=== PATIENT | male | born 2000 | race Caucasian/White ===

== ENCOUNTER 2021-01-25 14:33 | Emergency (ER) | payer MEDICAID, SELFPAY ==
[2021-01-25 14:56] VITALS: BP 121/76; PULSE 70; RESP 16; TEMP 37.1; O2SAT 96
--- NOTE | 2021-01-25 15:09 | ED.GENADUL_ITS ---
Discharge Plan Disposition Patient Disposition: HOME Condition: Stable Discharge Details Clinical Impression: Anal fissure Primary Care Provider: Unknown,Unknown ED Provider: Gilles Sheldon Home Meds and New Rx's Prescriptions: New lidocaine 3 % cream 1 applic topical TID PRNQty: 28.35 RF: 0 Discharge Instructions Instructions: Anal Fissure (ED), High Fiber Diet (ED) Additional Instructions: you can use over the counter preperation H try sitz baths where you sit in a warm bath for 15 minutes 3-4 times a day and after each bowel movements if you feel more ill or have severe worsening pain or uncontrolled bleeding return to the emergency department Medical Decision Making 20 yo male with no chronic medical problems comes in with cc of intermittent bleeding with bowel movements and pain with bowel movements. He states today he wiped and there was blood on the toilet paper so came here. Denies abdominal pain, fevers, chills, chest pain, lightheadedness. He appears well systemically speaking in full sentences. He has melissa bdominal tenderness. He has no blood on rectal exam and has a 1cm anal fissure at the 12 oclock position which is likely the source of his bleeding and pain but will obtain cbc to evaluate for anemia. Given lack of abdominal tendernress or bleeding on my exam do not feel ct indicated. labs unremarkable and he remains stable. Will have him start sitz baths, increase fiber and place on follow up list to get established with a pcp, return precautions given Differential Diagnosis Differential Diagnosis: anal fissure, hemorrhoids Lab Data Lab results reviewed: Yes I reviewed the patient's lab results. HPI General Mode of arrival: ambulatory . Date/Time Provider Initiated Documentation: 01/25/21 14:44 . Limitations to Documentation: no limitations . Information obtained by: patient . History of Present Illness 20 year old M presents to the emergency department with the chief complaint of rectal bleeding, described as moderate, Patient reports no radiation. Patient started experiencing this month(s) (2) and it has been intermittent. No relieving factors improve symptom(s), No exacerbating factors reported . Patient did receive the following treatments prior to arrival, none Related Data Home Medications Medication Instructions Recorded Confirmed lidocaine 1 applic TOPICAL TID PRN #28.35 g 01/25/21 Previous Rx's Medication Instructions Recorded lidocaine 1 applic TOPICAL TID PRN #28.35 g 01/25/21 General Stated Complaint: Vascular ALEM: 4 Review of Systems All systems reviewed & are unremarkable except as noted in HPI and below Constitutional Constitutional: Denies chills, Denies fever(s) and Denies weakness Cardiovascular Cardiovascular: Denies chest pain and Denies dyspnea Respiratory Respiratory: Denies cough and Denies dyspnea Gastrointestinal Gastrointestinal: Denies abdominal pain, Denies nausea and Denies vomiting Musculoskeletal Musculoskeletal: Denies joint swelling Neurologic Neurologic: Denies weakness Psychiatric Psychiatric: Denies depression PFSH Social History Smoking/Tobacco Use Status: Former Tobacco Use Smoking risk assessment performed?: Yes Drug use: Occasionally Substance use type: marijuana Do you feel safe at home: Yes Do you feel safe in your relationship?: Yes Exam Const General: no acute distress Orientation: alert HENMT Head: normal to inspection Ears: external ears normal General nose exam: external nose normal Mouth: moist mucous membranes Eyes General: appearance normal, both eyes and all related structures Neck Neck: normal visual inspection Resp Effort & Inspection: normal respiratory effort and able to speak in complete sentences Cardio Rate: regular rate GI Palpation: soft and nontender Skin General skin exam: no rashes or lesions noted Neuro General: patient alert and patient oriented x3 Extrem General: normal to inspection Psych Mental Status: mental status grossly normal Course Vital Signs Vital signs: Vital Signs Respiratory Rate 16 01/25/21 14:56 Blood Pressure 121/76 01/25/21 14:56 Pulse Oximetry 96 01/25/21 14:56 Respiratory Rate 16 01/25/21 14:56 Respiratory Effort 01/25/21 15:01 Respiratory Depth Normal 01/25/21 15:01 Respiratory Pattern Normal 01/25/21 15:01 Blood Pressure 121/76 01/25/21 14:56 Blood Pressure Position Sitting 01/25/21 14:56 Pulse Oximetry 96 01/25/21 14:56 Oxygen Delivery Method Room Air 01/25/21 14:56 Oxygen Flow Rate 0 01/25/21 14:56 Pain Level 6 01/25/21 14:56
[2021-01-25 15:25] LABS: Abs Immature Grans 0.07 10^3/uL (0.0-0.06); Absolute Basophil Count 0.07 10^3/uL (0.0-0.2); Absolute Eosinophil Count 0.28 10^3/uL (0.0-0.7); Absolute Lymphocyte Count 2.57 10^3/uL (1.2-3.4); Absolute Neutrophil Count 4.78 10^3/uL (1.2-6.7); Basophils % 0.8; Eosinophils % 3.2; HCT 45.9 % (40.0-50.0); HGB 15.1 g/dL (13.5-17.5); Immature Grans % 0.8; Lymphocytes % 29.6; MCH 28.4 pg (27.0-33.0); MCHC 32.9 % (32.0-36.0); MCV 86.3 fL (80-95); MPV 9.1 fL (8.0-11.0); Monocytes % 10.4; Neutrophils % 55.2; Nucleated RBC 0 %; Platelet Count 334 10^3/uL (130-400); RBC 5.32 10^6/uL (4.36-5.78); RDW 12.5 % (11.8-14.1); RDW-SD 39.4 fL; WBC 8.67 10^3/uL (4.4-10.8)
[2021-01-25 15:39] LABS: ALT 12 U/L (16-63); AST 13 U/L (15-37); Albumin 4.4 g/dL (3.4-5.0); Alkaline Phosphatase 75 U/L (46-116); Anion Gap 7.9 mmol/L (3-11); BUN 11 mg/dL (7-18); Bilirubin, Total 0.5 mg/dL (0.2-1.0); CO2 30.1 mmol/L (21.0-32.0); CREATININE 0.9 mg/dL (0.70-1.30); Calcium 9.9 mg/dL (8.5-10.1); Chloride 102 mmol/L (98-107); Glucose 98 mg/dL (74-106); Potassium 3.4 mmol/L (3.5-5.1); Sodium 140 mmol/L (136-145); Total Protein 8.4 g/dL (6.4-8.2)
--- NOTE | 2021-01-25 16:00 | NUR.NOTE ---
referral to [facility] for pcp
[2021-01-25 16:18] VITALS: PULSE 70; RESP 14; O2SAT 98
== END 2021-01-25 16:46 | disposition home or self-care (01) ==
PROVIDERS: Emergency Provider Emergency Medicine
DX: K60.0 Acute anal fissure (principal)
CPT/HCPCS: 36415; 80053; 99283; 85025

== ENCOUNTER 2021-02-27 15:10 | Outpatient (REF) | payer MEDICAID, SELFPAY ==
[2021-03-02 18:39] LABS: Chlamydia Result Negative (Negative); GC Result Negative (Negative)
== END 2021-02-27 15:11 | disposition home or self-care (01) ==
LOC: LBN 15:10
PROVIDERS: Visit Provider Family Medicine
DX: Z11.3 Encounter for screening for infections with a predominantly sexual mode of transmission (principal)
CPT/HCPCS: 87491; 87591

== ENCOUNTER 2021-03-06 00:59 | Outpatient (CLI) | payer MEDICAID, SELFPAY ==
--- NOTE | 2021-03-06 09:30 | DI.US_ITS ---
Exam(s) US SCROTUM EXAM: US SCROTUM CLINICAL HISTORY: RT TESTICULAR PAIN, N50.811. TECHNIQUE: Scrotal ultrasound performed using grayscale, color-flow and spectral Doppler analysis. COMPARISON: No exams were available for comparison FINDINGS: Right testicle: 4.4 x 2.6 x 3.0 cm Echogenicity: Normal. Contour: Smooth. Mass: None seen. Microlithiasis: There is a single tiny parenchymal calcification. Hydrocele: There is a small hydrocele measuring 2.3 x 1.4 x 1.8 cm. Variocele: None. Hernia: No peristalsing bowel loop identified. Epididymis: There is a 8 mm epididymal head cyst. Left testicle: 4.1 x 2.7 x 3.1 cm Echogenicity: Normal. Contour: Smooth. Mass: None seen. Microlithiasis: There is a single tiny parenchymal calcification. Hydrocele: None. Variocele: None. Hernia: No peristalsing bowel loop identified. Epididymis: There is a 5 mm epididymal cyst. DOPPLER: Color: Symmetric and uniform, no hyperemia. Duplex: Bilateral testicular arterial waveforms visualized. IMPRESSION: 1. No evidence of a testicular mass or torsion. 2. Bilateral small epididymal cysts. 3. Small right hydrocele. DATA REPOSITORY:
== END 2021-03-06 01:19 ==
PROVIDERS: Visit Provider Physician Assistant Medical
DX: N50.811 Right testicular pain (principal); N43.2 Other hydrocele; N50.3 Cyst of epididymis
CPT/HCPCS: 76870

== ENCOUNTER 2021-05-07 17:33 | Outpatient (REF) | payer MEDICAID, SELFPAY ==
[2021-05-07 21:38] LABS: ALT 16 U/L (16-63); AST 20 U/L (15-37); Albumin 4.5 g/dL (3.4-5.0); Alkaline Phosphatase 67 U/L (46-116); Anion Gap 6.5 mmol/L (3-11); BUN 7 mg/dL (7-18); Bilirubin, Total 0.6 mg/dL (0.2-1.0); CO2 29.5 mmol/L (21.0-32.0); CREATININE 0.8 mg/dL (0.70-1.30); Calcium 9.3 mg/dL (8.5-10.1); Chloride 101 mmol/L (98-107); Glucose 86 mg/dL (74-106); Potassium 4.1 mmol/L (3.5-5.1); Sodium 137 mmol/L (136-145); Total Protein 7.6 g/dL (6.4-8.2)
== END 2021-05-07 17:34 | disposition home or self-care (01) ==
LOC: LBN 17:33
PROVIDERS: Visit Provider Physician Assistant Medical
DX: B35.0 Tinea barbae and tinea capitis (principal)
CPT/HCPCS: 80053

== ENCOUNTER 2021-08-25 08:47 | Outpatient (REF) | payer MEDICAID, SELFPAY ==
[2021-08-25 14:39] LABS: Abs Immature Grans 0.04 10^3/uL (0.0-0.06); Absolute Basophil Count 0.04 10^3/uL (0.0-0.2); Absolute Eosinophil Count 0.37 10^3/uL (0.0-0.7); Absolute Lymphocyte Count 1.85 10^3/uL (1.2-3.4); Absolute Monocyte Count 0.57 10^3/uL (0.1-0.8); Absolute Neutrophil Count 2.94 10^3/uL (1.2-6.7); Basophils % 0.7; Eosinophils % 6.4; HCT 45.8 % (40.0-50.0); HGB 15.4 g/dL (13.5-17.5); Immature Grans % 0.7; Lymphocytes % 31.8; MCH 30.6 pg (27.0-33.0); MCHC 33.6 % (32.0-36.0); MCV 91 fL (80-95); MPV 10.4 fL (8.0-11.0); Monocytes % 9.8; Neutrophils % 50.6; Platelet Count 262 10^3/uL (130-400); RBC 5.03 10^6/uL (4.36-5.78); RDW 12.9 % (11.8-14.1); RDW-SD 42.9 fL; WBC 5.81 10^3/uL (4.4-10.8)
[2021-08-25 15:12] LABS: ALT 19 U/L (16-63); AST 13 U/L (15-37); Albumin 4.2 g/dL (3.4-5.0); Alkaline Phosphatase 73 U/L (46-116); Anion Gap 7.5 mmol/L (3-11); BUN 11 mg/dL (7-18); Bilirubin, Total 0.3 mg/dL (0.2-1.0); CO2 29.5 mmol/L (21.0-32.0); CREATININE 0.8 mg/dL (0.70-1.30); Calcium 8.9 mg/dL (8.5-10.1); Chloride 104 mmol/L (98-107); Glucose 89 mg/dL (74-106); Potassium 3.9 mmol/L (3.5-5.1); Sodium 141 mmol/L (136-145); TSH (W/Ref FT4) 1.12 uIU/mL (0.52-4.13); Total Protein 7.3 g/dL (6.4-8.2)
[2021-08-26 11:09] LABS: HSV Type 1 Ab, IgG Negative (Negative); HSV Type 2 Ab, IgG Negative (Negative)
[2021-08-26 11:13] LABS: Syphilis Serology (RPR) Negative (Negative)
[2021-08-26 11:37] LABS: HIV-1/2 Ag & Ab Screen Negative (Negative)
[2021-08-26 15:04] LABS: Chlamydia Result Negative (Negative); GC Result Negative (Negative)
== END 2021-08-25 08:48 | disposition home or self-care (01) ==
LOC: NCHCN 08:47
PROVIDERS: Visit Provider Nurse Practitioner Family
DX: F41.8 Other specified anxiety disorders (principal); F12.20 Cannabis dependence, uncomplicated; K62.89 Other specified diseases of anus and rectum; Z11.3 Encounter for screening for infections with a predominantly sexual mode of transmission; Z11.4 Encounter for screening for human immunodeficiency virus [HIV]; Z72.0 Tobacco use; J45.20 Mild intermittent asthma, uncomplicated; Z11.59 Encounter for screening for other viral diseases
CPT/HCPCS: 80053; 87389; 87491; 87591; 84443; 85025; 86592; 86695; 86696

== ENCOUNTER 2022-01-13 15:17 | Outpatient (REF) | payer MEDICAID, SELFPAY ==
[2022-01-14 09:33] LABS: Syphilis Serology (RPR) Negative (Negative)
[2022-01-14 09:46] LABS: HIV-1/2 Ag & Ab Screen Negative (Negative)
[2022-01-15 11:17] LABS: HSV Type 1 Ab, IgG Negative (Negative); HSV Type 2 Ab, IgG Negative (Negative)
[2022-01-15 16:02] LABS: Chlamydia Result Negative (Negative); GC Result Negative (Negative)
== END 2022-01-13 15:18 | disposition home or self-care (01) ==
LOC: NCHCN 15:17
PROVIDERS: Visit Provider Nurse Practitioner Family
DX: K62.89 Other specified diseases of anus and rectum; Z11.3 Encounter for screening for infections with a predominantly sexual mode of transmission; Z11.4 Encounter for screening for human immunodeficiency virus [HIV]; Z11.59 Encounter for screening for other viral diseases
CPT/HCPCS: 87389; 87491; 87591; 86592; 86695; 86696

== ENCOUNTER 2022-06-25 06:16 | Day surgery (SDC) | payer MEDICAID, SELFPAY ==
--- NOTE | 2022-06-24 18:21 | W.ANESPRE ---
General Info Date of Service Date Performed: 06/25/22 Height: 5 ft 7 in Weight: 58.967 kg Body Mass Index (BMI): 20.3 Surgical Procedure: Operation Date: 06/25/22 07:40 Proposed Procedure Side Surgeon p Exam Under Anesthesia Rylan Epstein MD s Colonoscopy Rylan Epstein MD Meds Allergies and Home Medications Allergies Allergy/AdvReac Type Severity Reaction Status Date / Time No Known Allergies Allergy Unverified 06/25/22 06:22 Home Medication Medication Instructions Recorded lidocaine 3 % topical cream 1 applic topical TID PRN #28.35 01/25/21 grams fluticasone propionate 45 2 puff inhalation BID 06/03/22 mcg-salmeterol 21 mcg/actuation HFA inhaler (Advair HFA) ketoconazole 2 % topical cream 1 applic topical BID 06/03/22 Current Visit Medications: Current Medications Generic Name Dose Route Start Last Admin Trade Name Freq PRN Reason Stop Dose Admin Ringer's Solution 1,000 mls @ 80 mls/hr 06/25/22 06:00 IV 07/24/22 23:59 INFUSION SAL IV Miscellaneous Supplies 1 each 06/25/22 06:00 Iv Access IV 07/24/22 23:59 DIRECTED SAL Sodium Chloride 0 ml 06/25/22 06:00 Normal Saline Flush 10 Ml Syr IV 07/24/22 23:59 PRN PRN Sodium Chloride 0 ml 06/25/22 06:00 Normal Saline 10 Ml Vial IJ 07/24/22 23:59 DIRECTED PRN Sterile Water 0 ml 06/25/22 06:00 Water,Injection,Sterile 10 Ml Vial IJ 07/24/22 23:59 DIRECTED PRN PFSH Active Problems Active Problems: Problem Status Onset Code Anal fissure K60.2 Constipation K59.00 Cannabis dependence F12.20 Back pain M54.9 Anxiety and depression F41.9, F32.A Anal fistula K60.3 Rectal pain K62.89 Medical History Medical History Asthma, intermittent Testicular pain, right Surgical History Surgical History [place] teeth removed Tobacco Smoking/Tobacco Use Status: Former Tobacco Use Alcohol Alcohol Intake: current Alcohol intake frequency: holidays/special occasions only Substance Use Substance use: Daily Substance use type: marijuana Details: Smokes, vapes and edibles with marijuana Vital Signs and Lab Results Vital Signs Most Recent Vital Signs in EMR: Temp Pulse Resp BP Pulse Ox 37.1 C 68 18 107/69 97 06/25/22 06:24 06/25/22 06:24 06/25/22 06:24 06/25/22 06:24 06/25/22 06:24 Lab Results Blood Type / Crossmatch: No Data to Display Complete Blood Count: No Data to Display Complete Metabolic Panel: No Data to Display Liver Function Panel: No Data to Display Coagulation Panel: No Data to Display Cardiac Panel: No Data to Display Arterial Blood Gas: No Data to Display Venous Blood Gas: No Data to Display Pancreas Panel: No Data to Display Thyroid Panel: No Data to Display Infectious Disease: No Data to Display Blood Cultures: No Data to Display Toxicology Panel: No Data to Display Anesthesia Assessment and Plan Anesthesia History Personal History: No History of General Anesthesia Family History: No Family History of Anesthesia Complications Exercise Tolerance Exercise Tolerance: Metabolic Equivalents>4 Cardiac & Pulmonary Exam Cardiac Exam: Normal S1/S2 Heart Sounds Pulmonary Exam: Clear Bilateral Breath Sounds Implantable Cardiac Device Does patient have a Pacemaker or an ICD?: No Airway Exam Known Difficult Airway: No Mallampati Class: 3 Mouth Opening: Narrow (< 3cm) Thyromental Distance: Greater than 3 cm Neck Range of Motion: Full ROM Neck Circumference: Normal Teeth Condition: Normal Dentition ASA Classification ASA Score: ASA 2 Emergency Case?: No NPO Status NPO Status: NPO Clears >2 hours, Solids >8 hours Anesthesia Plan Resuscitation Status: Full Code Anesthesia Technique: General Anesthesia Airway Planned: Natural Airway Monitors Used: Standard Monitors Preoperative Comments:: 21 yo male for EUA/colo. Sig PMHx: anxiety/depression, backpain, asthma (Advair, no rescue inhaler. Will get slight wheeze with heavy exertion), former tobacco (does vape on occasion), daily cannabis (1/4 a day, only a small amount this AM), occ EtOH.
--- NOTE | 2022-06-24 20:25 | W.PM.DSUDISC ---
Date of service: 06/25/22 Time of Service: 08:11 Discharge Plan Disposition Patient Disposition: Home Condition: Good Discharge Details Reason For Visit: Anorectal exam under anesthesia and colonoscopy Attending Provider: Rylan Epstein Primary Care Provider: MARCELO GALLAGHER Home Meds and New Rx's Prescriptions: New oxycodone 5 mg tablet 5 mg PO Q8H PRN (Reason: pain) Qty: 15 0RF Rx Instructions: Take 1 tablet by mouth up to every 8 hours if needed for pain. Do not drive while using this medication. Continued ketoconazole 2 % cream 1 applic topical BID Advair HFA 45-21 mcg/actuation HFA aerosol inhaler 2 puff inhalation BID lidocaine 3 % cream 1 applic topical TID PRNQty: 28.35 0RF Discontinued bisacodyl [Dulcolax (bisacodyl)] 5 mg tablet,delayed release (DR/EC) 5 mg PO ONCE Qty: 4 0RF Rx Instructions: Colonoscopy Bowel Prep- Per Instructions polyethylene glycol 3350 17 gram/dose powder 238 g PO ONCE Qty: 238 0RF Rx Instructions: Colonoscopy Bowel Prep- Per Instructions Discharge Instructions Additional Instructions: Balwinder, we were able to complete your previous procedure today without any difficulty. Your colonoscopy was normal. I did not see any signs of inflammatory bowel diseases like Crohn's disease or ulcerative colitis. You did have a perianal fistula. This is an abnormal connection from the inside lining of your anus to the outside of your skin. It was quite superficial. I excised this, and repaired the skin around it. You should expect to have a fair amount of pain around your anus over the next week or 2. Follow the instructions attached here, and call if you need anything at all. Otherwise, I will see you on the at 2 PM for a routine follow-up exam. 1. Resume all of your medications. 2. Use oxycodone as needed for severe pain. 3. Obtain a sitz bath from any pharmacy. Soak for 10-15 minutes in warm water, warm water mixed with half a cup of baking soda, or Epson salts after each bowel movement, or up to 5 times per day as needed for pain. 4. Okay to use tylenol and ibuprofen over the counter as needed. 5. Uwbk-wsi-qypokwy hemorrhoid type medications will also be useful. I recommended to both Preparation H. Apply a thin amount to your anus 3 times a day, and after every bowel movement 6. Shower with warm soapy water. Pat dry. Use a menstrual pad if needed to protect your clothing 7. No heavy lifting until I see you in the office. 8.Call the office (or go directly to the emergency room after hours) if you notice any of the following: Develop chills (warm to touch), or if you have a thermometer and your temperature is above 101 Difficulty breathing or difficultly swallowing Persistent vomiting Any bleeding ? exceeding one tablespoon 9. Call your physician if the site where your intravenous was started becomes red, swollen, painful, and warm to touch. Activity:: Activity as Tolerated Diet:: As Tolerated Discharge Orders Discharge Orders: Discharge Order (Routine); Ordered 06/24/22 Ordered By: Rylan Epstein DS: Diagnosis Discharge Diagnosis (1) Anal fissure: Status: Acute
--- NOTE | 2022-06-24 20:26 | W.PM.OP ---
Date of service: 06/25/22 Time of Service: 08:32 Operative Note Operative Note DATE OF PROCEDURE: 06/25/22 PRE-OP DIAGNOSIS: Anal fissure POST-OP DIAGNOSIS: other (Anal fistula) PROCEDURE: anorectal exam under anesthesia and colonoscopy SURGEON: Rylan Epstein COLLECTION SYSTEMS ADMINISTRATOR: Pia Swain Refer to Anesthesia Record ESTIMATED BLOOD LOSS: 20 PATHOLOGY: none sent COMPLICATIONS: None Patient was transported to: PACU Patient's condition: stable Indications: Balwinder is a 21-year-old male with several months of perianal pain. Exam in the office raise the concern for an anal fissure or fistula. Given his age, and the appearance of the lesion, we felt that colonoscopy would be warranted to rule out other forms of perianal diseases such as Crohn's disease. Findings: Posterior anal fistula Procedure Description: After the induction of monitored anesthetic care, I began with an external anorectal exam. In lithotomy positioning, with the anus as a clock face, there is a granular opening in the skin immediately at the anal verge near the 5 to 6 o'clock position. It is quite indurated, but not fluctuant. Otherwise, digital rectal examination was normal. There was no evidence of external hemorrhoids.? Next, I advanced a colonoscope into the rectal vault.? I performed retroflexion.? I did not see signs of pathologic internal hemorrhoids.? Using insufflation, I then advanced the colonoscope beyond the rectal folds and into the sigmoid colon before advancing towards the cecum.? The quality of the prep was outstanding.? The scope was noted to be in the cecum by identification of the ileocecal valve and appendiceal orifice.? I then began withdrawing the colonoscope using repeated irrigation as necessary for full evaluation of the colonic mucosa. ?Once the scope was withdrawn to the level of the rectum, great care was taken to examine portions of the rectal folds.? I did not see any evidence of tumors, polyps, or any signs of inflammatory bowel disease such as Crohn's disease or ulcerative colitis. Next, I turned my attention back to his anus. Using a series of anal retractors, I performed a careful examination. With instillation of hydrogen peroxide and the external opening, I did see some bubbles emanating within the anal canal. The fistula was then gently examined with lacrimal duct probes. It was straight in nature, and seemed superficial to the anal sphincter complex. Next, I instilled local anesthetic with epinephrine to block the anal area. I then sharply excised the length of the fistula including the granulation tissue surrounding it. The base of the wound appeared to be healthy external anal sphincter. Great care was taken to avoid injury to the muscle. The wound was gently irrigated, and the overlying mucosa was closed with Vicryl stitches. Bandages were applied, and the patient was allowed awaken from his anesthetic, and transferred to the recovery unit
[2022-06-25] VITALS (8 sets, daily range): BP systolic 107–132; BP diastolic 59–78; PULSE 49–75; RESP 10–23; TEMP 36.2–37.1; O2SAT 97–100; BMI 20.3
[2022-06-25] MEDS: Lactated Ringers 1,000 ML 80 ML IV (07:21)
[2022-06-25] MEDS: Bupivacaine 0.25% Pres-Free W/EPI 30 ML VIAL (07:46)
[2022-06-25] MEDS: Hydrogen Peroxide 3% 480 ML BTL (08:03)
--- NOTE | 2022-06-25 08:37 | W.ANESPOSTOP ---
Postoperative Evaluation Date, Time and Location Date Performed: 06/25/22 Time Performed: 08:30 Patient Location: PACU Vital Signs Most Recent Imported Vital Signs: Most Recent Vital Signs Temp Pulse Resp BP Pulse Ox 36.6 C 53 L 10 L 110/78 100 06/25/22 08:33 06/25/22 08:33 06/25/22 08:33 06/25/22 08:33 06/25/22 08:33 Pain Score Most Recent Pain Score: Most Recent Pain Score Pain Level 5 06/25/22 08:33 Assessment Mental Status: Awake (Alert & Oriented to Patient Baseline) Airway and Respiratory Function: Patent airway with normal (patient baseline) respiratory exam Cardiovascular Function: Hemodynamically Stable Hydration Status: Adequately Hydrated Nausea & Vomiting: No Nausea or Vomiting Pain: Pain is tolerable per patient Peripheral Nerve Block: Patient did not receive a nerve block
[2022-06-25] MEDS: Ketorolac 15 MG/ML VIAL IVP (08:43)
[2022-06-25] MEDS: ACETAMINOPHEN 1,000 MG/100 ML BTL 400 MG IVPB (08:45)
== END 2022-06-25 09:35 | disposition home or self-care (01) ==
PROVIDERS: PCP Nurse Practitioner Family; Visit Provider Surgery
PROC: (CPT 46280; principal; 2022-06-25 07:30)
PROC: 0DJD8ZZ Inspection of Lower Intestinal Tract, Via Natural or Artificial Opening Endoscopic (ICD-10-PCS; CPT 45378; 2022-06-25 07:30)
DX: K60.5 Anorectal fistula (principal); K62.89 Other specified diseases of anus and rectum
CPT/HCPCS: 46280; 45378; J0131; J1885; J2704

== ENCOUNTER 2022-10-08 18:58 | Outpatient (CLI) | payer MEDICAID, SELFPAY ==
--- NOTE | 2022-10-08 19:00 | DI.RAD_ITS ---
Exam(s) XR KNEE LT 3V AP,LAT,JUANITA EXAM: XR KNEE LT 3V AP,LAT,JUANITA CLINICAL HISTORY: pain. TECHNIQUE: 2D digital imaging was performed of the left knee. Three images were obtained. AP, late ral and PA tunnel views were obtained. COMPARISON: No exams were available for comparison FINDINGS: BONES: No acute fracture is present. No bony destructive lesion is seen. There is a small bone islan d in the medial femoral condyle. JOINTS: The knee is normally aligned. There is a small joint effusion. SOFT TISSUE: Normal. IMPRESSION: Small joint effusion. DATA REPOSITORY: RADIATION DOSE DELIVERED:
--- NOTE | 2022-10-08 19:51 | DI.VRAD_ITS ---
PROCEDURE INFORMATION: Exam: XR Left Knee Exam date and time: 10/08/2022 7:08 PM Age: 21 years old Clinical indication: Other: Pain TECHNIQUE: Imaging protocol: Radiologic exam of the left knee. Views: 3 views. COMPARISON: No relevant prior studies available. FINDINGS: Bones/joints: Osseous mineralization is normal. There are no inflammatory osseous erosive changes. The joint spaces are maintained without degenerative changes. There is a small to moderate suprapatellar joint effusion. There is a 9 x 9 mm calcified lesion within the medial femoral condyle, suggesting a benign bone island. There are no acute displaced fractures or subluxations. Soft tissues: Normal. IMPRESSION: 1. No degenerative changes or evidence of chronic inflammatory arthropathy. 2. Small to moderate suprapatellar joint effusion. 3. Small calcified lesion within the medial femoral condyle, suggesting a benign bone island. Dictated and Authenticated by: Jarod Kwan MD. Ordering:HIRAM Kerr MD
== END 2022-10-08 19:18 ==
LOC: DI 18:58
PROVIDERS: PCP Nurse Practitioner Family; Visit Provider Physician Assistant Medical
DX: M25.462 Effusion, left knee (principal); M25.562 Pain in left knee
CPT/HCPCS: 73562

== ENCOUNTER 2022-10-22 00:31 | Outpatient (CLI) | payer MEDICAID, SELFPAY ==
--- NOTE | 2022-10-22 09:15 | DI.MRI_ITS ---
Exam(s) MR LOWER JOINT LT WO EXAM: MR LOWER JOINT LT WO CLINICAL HISTORY: INTERNAL DERANGEMENT, LT KNEE, M23.92 TECHNIQUE: Multiplanar multisequence MRI of the knee was performed. COMPARISON: CR,XR XR KNEE LT 3V AP,LAT,JUANITA from 10/08/2022 FINDINGS: EFFUSION: There is a small joint effusion. This is most prominent in the lateral aspect of the supra patellar bursa/medial to the iliotibial band (which self appears unremarkable). MARROW:There is no evidence of fracture, bone contusion, nor osteochondral defects.. In the posterio r aspect of the medial femoral condyle there is a well-defined benign-appearing bone lesion measuring 9 mm by 8 mm by 9 mm, not exhibiting surrounding bone edema to suggest that this is an aggressive le sasha. Possibly an enchondroma. PATELLOFEMORAL COMPARTMENT: The quadriceps tendon is intact. The patellar ligament is intact. Retropatellar cartilage over the lateral patellar facet appears unremarkable. There is, however, foc us of none signal abnormality in the retropatellar cartilage over the medial facet which has the appe arance of a mildly oblique fissure in the cartilage of this level extending towards the patellar roz ex. There is no abnormal intraosseous signal in the patella. There is no intraosseous signal to sug gest recent patellar dislocation. There are no patellar retinacular tears. CRUCIATE LIGAMENTS: The anterior cruciate ligament is intact.The posterior cruciate ligament is intac t. MEDIAL COMPARTMENT/MEDIAL MENISCUS: There are no tears of the medial meniscus evident.. There are no chondral defects, osteochondral defects, subarticular marrow edema, nor osteophytes evid ent. MEDIAL COLLATERAL LIGAMENT: There is focal increased signal in the inner aspect of the MCL just above the meniscocapsular junction. LATERAL COMPARTMENT/LATERAL MENISCUS: There is no evidence of lateral meniscal tear.There are no adriano dral defects, osteochondral defects, subarticular marrow edema, nor osteophytes evident. ILIOTIBIAL BAND: Intact LATERAL COLLATERAL LIGAMENT COMPLEX: The fibular collateral ligament is intact. The biceps femoris t endon is intact.Popliteus muscle and tendon are intact. IMPRESSION: 1. There is no evidence of bone contusion, meniscal tears, nor cruciate ligament tears, and the later al collateral ligament complex is intact. Small joint effusion. No Blanco cyst. 2. There is some signal abnormality in the retropatellar cartilage over the medial facet having the a ppearance of a focal fissure more so than an actual osteochondral defect. There is no abnormal intra osseous signal in the posterior patella at this level. No patellar subluxation nor intraosseous evid ence to suggest recent patellar dislocation. There is also mild increased signal seen in the medial collateral ligament just above the meniscocapsular junction. There is no overlying soft tissue swell ing. Probably represents partial thickness injury of the inner aspect of the MCL at this level 3. Benign-appearing bone lesion evident in the posterior aspect of the medial femoral condyle measuri ng 9 x 8 x 9 mm and not associated with surrounding bone edema to suggest that it would be an aggress ora lesion. Probably an enchondroma. DATA REPOSITORY:
== END 2022-10-22 00:51 ==
LOC: DI 00:31
PROVIDERS: PCP Nurse Practitioner Family; Visit Provider Physician Assistant Medical
DX: M24.19 Other articular cartilage disorders, other specified site (principal)
CPT/HCPCS: 73721

== ENCOUNTER 2023-01-21 12:55 | Outpatient (REF) | payer MEDICAID, SELFPAY ==
[2023-01-22 16:31] LABS: Chlamydia Result Negative (Negative); GC Result Negative (Negative)
[2023-01-24 09:22] LABS: Syphilis Serology (RPR) Negative (Negative)
[2023-01-24 12:05] LABS: HIV-1/2 Ag & Ab Screen Negative (Negative)
== END 2023-01-21 12:56 | disposition home or self-care (01) ==
LOC: NCHCN 12:55
PROVIDERS: PCP Nurse Practitioner Family; Visit Provider Nurse Practitioner Family
DX: Z11.3 Encounter for screening for infections with a predominantly sexual mode of transmission (principal); Z11.4 Encounter for screening for human immunodeficiency virus [HIV]; Z11.59 Encounter for screening for other viral diseases
CPT/HCPCS: 87389; 87491; 87591; 86592